=== PATIENT | male | born 1990 ===

== ENCOUNTER 2020-07-30 01:37 | Emergency (ER) | payer OTHER, BC ==
[~2020-07-30] VITALS: Ht 182.9 cm; Wt 115.7 kg
[2020-07-30] MEDS ORDERED: IBU600 MG PO (02:57)
== END 2020-07-30 03:10 | disposition home or self-care (01) ==
LOC: ER 01:37
DX: R07.9 Chest pain, unspecified (principal); I10 Essential (primary) hypertension; F17.200 Nicotine dependence, unspecified, uncomplicated; V49.50XA Passenger injured in collision with unspecified motor vehicles in traffic accident, initial encounter; Y92.410 Unspecified street and highway as the place of occurrence of the external cause
CPT/HCPCS: 71046; 93005; 93010; 99284-25; A9270